=== PATIENT | female | born 1975 | race Two or more races ===

== ENCOUNTER 2016-10-24 08:18 | Day surgery (SDC) | payer MEDICAID ==
[~2016-10-24 08:18] MED LIST: IV START KIT ONE; LACTATED RINGERS 1,000 ML IV SCH; LACTATED RINGERS 1,000 ML ONE; LIDOCAINE 1% 2 ML VIAL ID PRN
[2016-10-24] MEDS ORDERED: LIDOCAINE 1% 2 ML VIAL ID PRN (08:59)
[2016-10-24] MEDS ORDERED: LACTATED RINGERS 1,000 ML IV SCH ×2 (09:00→10:30)
[2016-10-24] MEDS ORDERED: LIDOCAINE 1% (PRES FREE) 30 ML VIAL ONE (09:08)
[2016-10-24] MEDS ORDERED: PROPOFOL 20 ML IV ONE ×2 (09:08)
[2016-10-24] MEDS ORDERED: FENTANYL 100 MCG/2 ML VIAL ONE ×2 (09:37→10:08)
[2016-10-24] MEDS ORDERED: MIDAZOLAM HCL 1 MG/ML 2ML VIAL ONE (09:37)
[2016-10-24] MEDS ORDERED: ONDANSETRON 4 MG/2ML 2 ML VIAL ONE (10:15)
[2016-10-24] MEDS ORDERED: DEXAMETHASONE SOD PHOS 4 MG/1 ML VIAL ONE (10:15)
[2016-10-24] MEDS ORDERED: MEPERIDINE 25 MG/ML SYRINGE IV PRN (10:17)
[2016-10-24] MEDS ORDERED: ATROPINE SULFATE 0.4 MG/1 ML VIAL IV PRN (10:17)
[2016-10-24] MEDS ORDERED: PROMETHAZINE HCL 25 MG/ML VIAL IM PRN (10:17)
[2016-10-24] MEDS ORDERED: NALOXONE HCL 0.4 MG/ML VIAL IV PRN (10:17)
[2016-10-24] MEDS ORDERED: ONDANSETRON 4 MG/2ML 2 ML VIAL IV PRN (10:17)
[2016-10-24] MEDS ORDERED: FENTANYL 100 MCG/2 ML VIAL IV PRN (10:17)
[2016-10-24] MEDS ORDERED: HYDROMORPHONE HCL 1 MG/ML SYRINGE IV PRN (10:17)
[2016-10-24] MEDS ORDERED: OXYCODONE/ACETAMINOPHEN 5/325 MG TABLET PO PRN (10:42)
[2016-10-24] MEDS ORDERED: IBUPROFEN 800 MG TABLET PO PRN (10:42)
--- NOTE | 2016-10-24 10:58 | PCMBPN ---
Brief Post Op Note: Date of Procedure: 10/24/16 Start Time: Preoperative Diagnosis: 1. dysmenorrhea, menorrhagia, leiomyoma, endometrial polyp Postoperative Diagnosis: 1. Same Procedure: dilatation and curettage, hysteroscopy, polypectomy, endometrial ablation Surgeon: Regino Heredia Assist: Anesthesia: ms preston, general Findings: external genitalia healthy, cervix pink and patulous, vagina healthy, uterus top normal size anteverted, adnexa negative, sounded to 9.5 cm, cervical length 4cm, cavity width 4.4cm, power for novasure 133, time 1:38min. hysteroscopy: small polyp Condition: stable Complications: none IV Fluids: mLs of LR Urine Output: 200 mLs Estimated Blood Loss: 10 mLs Tourniquet Time: N/A Specimens: endocervical and endometrial curettings, polypoidal tissue Implants: Drains: N/A patient tolerated procedure well and was returned to recovery room in stable condition.
--- NOTE | 2016-10-24 11:13 | OP ---
Wendy Smith : 1975 NAME OF OPERATION: Dilation and curettage, hysteroscopy, polypectomy, and endometrial ablation. SIDE PANEL PADDER: Dr. Regino Ferrell ANESTHESIA: Ms. Rodriguez, General. DESCRIPTION OF PROCEDURE: Dictation begins with patient under general anesthesia. She was placed in the lithotomy position. The vagina was prepared with Betadine and draped in the usual manner. After a timeout was preformed exam under anesthesia revealed the external genitalia healthy, vagina healthy, cervix was pink and patulous, uterus top normal size and anteverted, adnexa negative. A duckbill speculum was inserted into the vagina gently. The anterior lip of the cervix grasped with a single prong tenaculum. Curettage from the endocervical canal produced scanty amounts of mucous and blood. Next, the uterus was sounded to 9.5 cm and the cervix was then gradually dilated with Alec dilators. Curettage produced about 4 mL of endometrial curettings including what appeared to be a tiny formed polyp. Hysteroscopic exam was next performed using normal saline. There was a 90 mL deficit. Findings included a small polyp which was photographed prior to removal. The rest of the cavity appeared normal. Lastly, the endometrial ablation as performed. The cavity was reassessed. The total cavity length was 9.5. The cervical length was 4 with the length used for the NovaSure 5.5 cm, the width was 4.4. (During the procedure the power was 133, and the time on ablation was 1 minute and 38 seconds.) The NovaSure was inserted gently and then opened. It was rotated left and right in the cavity and front to back and then the NovaSure was performed uneventfully. After the procedure the NovaSure instrument was collapsed and removed and it was noted that there was cauterized tissue on the fan. The single prong tenaculum was removed. There was one bleeding point noted on the cervix from where the tenaculum had perforated it and this was cauterized with Silver Nitrate resulting in complete hemostasis. Now with complete hemostasis and sponge and instrument reported as correct after the speculum was removed, the operation was terminated. Estimated blood loss was 10 mL. She did have a urine output of 200 mL by straight catheterization at the onset of the procedure. FINAL DIAGNOSIS: As above. She tolerated procedure well and was returned to recovery room in stable condition. JOB: [id number]
--- NOTE | 2016-10-24 11:14 | DS ---
[facility] COURSE: A 41-year-old female admitted with dysmenorrhea, menorrhagia, leiomyoma, and an endometrial polyp. She underwent a dilation and curettage, hysteroscopy, polypectomy, and endometrial ablation and tolerated the procedure well and was sent home in good condition on Motrin and Percocet. She was advised office visit in one week. Pathology is pending at the time of this dictation. LABORATORY VALUES: The hemoglobin was normal and test was negative. FINAL DIAGNOSIS: As above. FOLLOW UP: She was advised office visit in one weeks time. JOB: [id number]
[2016-10-24] MEDS ORDERED: OXYCODONE/ACETAMINOPHEN 5/325 MG TABLET ONE (11:35)
[2016-10-24] MEDS ORDERED: IBUPROFEN 800 MG TABLET ONE (11:35)
--- NOTE | 2016-10-28 11:54 | SURGPATH ---
[facility] [address] [place] [id number] Patient Name: THIAGO MERCEDES MR#: [id number] : 1975 Gender: F Specimen #: [id number] Collected: 10/24/2016 Received: 10/27/2016 Reported: 10/28/2016 Submitting Phys: LEIDY NGUYỄN I Copy To Phys: [facility] Clinical History / Pre-Operative Diagnosis: MENORRHAGIA; DYSMENORRHEA; LEIOMYOMA Specimen Source / Surgical Procedure Performed: #1-ENDOCERVICAL CURETTINGS; #2-ENDOMETRIAL CURETTINGS Interpretation: 1. ENDOCERVIX, CURETTAGE: - BENIGN ENDOCERVICAL GLANDULAR TISSUE - FRAGMENTS OF BENIGN PROLIFERATIVE TYPE ENDOMETRIUM 2. ENDOMETRIUM, CURETTAGE: - DISORDERED PROLIFERATIVE ENDOMETRIUM Electronically Signed Out Cuco Brenner M.D. Gross Description: #1 The specimen is received in a formalin filled container labeled with the patient's name and "endocervical curetting". An aggregate of pink-callahan tissue admixed with hemorrhagic and mucoid material is 1.3 x 0.7 x 0.3 cm. Totally embedded in cassette #1. #2 The specimen is received in a formalin filled container labeled with the patient's name and "endometrial curetting". An aggregate of callahan tissue admixed with hemorrhagic material is 4.0 x 3.0 x 1.0 cm. Totally embedded in cassettes 2A-2C. Bora [place] Microscopic Description: 1. The sections show fragments of endometrial tissue showing rounded and slightly irregularly shaped glands with mitotic activity. There is background benign endocervical glandular tissue. 2. The sections show fragments of endometrium with rounded and slightly irregularly shaped glands. Some areas show a preserved gland to stromal ratio however there are other areas that show increased gland to stromal ratio. Malignant features are not identified. 1: 69251 2: 88595 N92.2
== END 2016-10-24 13:05 | disposition home or self-care (01) ==
LOC: SDC 08:18
PROVIDERS: ATTEND Obstetrics & Gynecology
PROC: 0UDB8ZX Extraction of Endometrium, Via Natural or Artificial Opening Endoscopic, Diagnostic (ICD-10-PCS; principal; 2016-10-24)
PROC: 0UB98ZX Excision of Uterus, Via Natural or Artificial Opening Endoscopic, Diagnostic (ICD-10-PCS; 2016-10-24)
PROC: 0UB98ZZ Excision of Uterus, Via Natural or Artificial Opening Endoscopic (ICD-10-PCS; 2016-10-24)
DX: N94.6 Dysmenorrhea, unspecified (principal); N92.0 Excessive and frequent menstruation with regular cycle; D25.9 Leiomyoma of uterus, unspecified; N84.0 Polyp of corpus uteri
CPT/HCPCS: 58563; J3010 ×2; J1100; A9270 ×2; J2250; J2001; J2405; J7120